=== PATIENT | male | born 1965 | race Caucasian/White ===

== ENCOUNTER 2018-01-13 06:03 | Observation (INO) | payer OTHER ==
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
[2018-01-13 06:55] LABS: Basophils % (A) 0 %; Eosinophils # (A) 0.1 k/uL (0-0.7); Eosinophils % (A) 1 %; HCT 48.4 % (39.0-53.0); HGB 16.2 gm/dL (13.0-17.5); Lymphocytes # (A) 2.6 k/uL (1.0-4.8); Lymphocytes % (A) 29 %; MCHC 33.5 g/dL (31.0-37.0); MCV 86.7 fL (80.0-100.0); Mean Platelet Volume 7.3; Monocytes # (A) 0.5 k/uL (0-1.0); Monocytes % (A) 5 %; Neutrophils # (A) 5.7 k/uL (1.3-7.7); Neutrophils % (A) 63 %; Platelet Count 211 k/uL (150-450); RBC 5.58 m/uL (4.30-5.90); RDW 13.3 % (11.5-15.5); WBC 9.1 k/uL (3.8-10.6)
[2018-01-13 07:04] LABS: ALT 44 U/L (21-72); AST 24 U/L (17-59); Albumin 4.2 g/dL (3.5-5.0); Alkaline Phosphatase 108 U/L (38-126); Anion Gap 13 mmol/L; Blood Urea Nitrogen 22 mg/dL (9-20); Calcium 9.5 mg/dL (8.4-10.2); Carbon Dioxide 22 mmol/L (22-30); Chloride 105 mmol/L (98-107); Glucose 128 mg/dL (74-99); Magnesium 2.2 mg/dL (1.6-2.3); Potassium 4.4 mmol/L (3.5-5.1); Sodium 140 mmol/L (137-145); Total Bilirubin 0.5 mg/dL (0.2-1.3); Total Protein 7.1 g/dL (6.3-8.2)
[2018-01-13 07:06] LABS: Partial Thromboplastin Time 24.6 sec (22.0-30.0); Prothrombin Time 10.2 sec (9.0-12.0)
[2018-01-13 07:14] LABS: Creatine Kinase 100 U/L (55-170)
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
[2018-01-13 07:27] LABS: Creatine Kinase MB 0.9 ng/mL (0.0-2.4); Troponin I <0.012 ng/mL (0.000-0.034)
[2018-01-13] MEDS ORDERED: ASPIRIN 81 MG PO STA (08:33)
[2018-01-13] MEDS ORDERED: NITROGLYCERIN SL TABS 0.4 MG TAB SUBLINGUAL STA (08:33)
[2018-01-13] MEDS ORDERED: NITROGLYCERIN SL TABS 0.4 MG TAB SUBLINGUAL PRN (09:58)
[2018-01-13] MEDS ORDERED: HEPARIN SODIUM,PORCINE 5,000 UNIT/ML 1 ML VIAL IV ONE (09:58)
[2018-01-13] MEDS ORDERED: WATER IV SCH ×2 (10:00)
[2018-01-13] MEDS ORDERED: HEPARIN SODIUM PORCINE IV SCH ×2 (10:00)
[2018-01-13] MEDS ORDERED: D5W PMX IV SCH ×2 (10:00)
[2018-01-13] MEDS ORDERED: DEXTROSE 5% IV SCH ×2 (10:00)
[2018-01-13] MEDS ORDERED: ACETAMINOPHEN TAB 500 MG TAB PO STA (10:27)
[2018-01-13] MEDS: SODIUM CHLORIDE 0.9% 1,000 ML IV SCH (10:45)
[2018-01-13 12:24] LABS: Creatine Kinase 81 U/L (55-170)
[2018-01-13] MEDS: NITROGLYCERIN OINT 1 INCH/GM PACKET TOPICAL SCH ×2 (12:26→18:50)
[2018-01-13 12:37] LABS: Creatine Kinase MB 0.6 ng/mL (0.0-2.4); Troponin I <0.012 ng/mL (0.000-0.034)
[2018-01-13 14:49] VITALS: BMI 38.4
[2018-01-13] MEDS: ACETAMINOPHEN TAB 325 MG TAB PO PRN (16:19)
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
[2018-01-13] MEDS: LISINOPRIL 2.5 MG TAB PO SCH (18:49)
[2018-01-13 18:52] LABS: Creatine Kinase 76 U/L (55-170)
[2018-01-13] MEDS ORDERED: HEPARIN SODIUM,PORCINE 5,000 UNIT/ML 1 ML VIAL IV PRN (18:55)
[2018-01-13 19:05] LABS: Creatine Kinase MB 0.6 ng/mL (0.0-2.4); Troponin I <0.012 ng/mL (0.000-0.034)
[2018-01-14 01:35] LABS: Cholesterol 170 mg/dL (<200); HDL Cholesterol 45 mg/dL (40-60); LDL Cholesterol,Calculated 74 mg/dL (0-99); Triglycerides 253 mg/dL (<150)
[2018-01-14] MEDS: NITROGLYCERIN OINT 1 INCH/GM PACKET TOPICAL SCH ×5 (02:00→23:50)
[2018-01-14] MEDS ORDERED: HEPARIN SODIUM,PORCINE/D5W PMX 25,000 UNIT in DEXTROSE/WATER 1 500ML.BAG IV SCH (05:44)
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
[2018-01-14] MEDS: ATORVASTATIN 40 MG TAB PO SCH (10:09)
[2018-01-14] MEDS: ASPIRIN 325 MG TAB PO SCH (10:09)
[2018-01-14] MEDS: LISINOPRIL 2.5 MG TAB PO SCH (10:09)
[2018-01-14] MEDS: PANTOPRAZOLE 40 MG TABLET PO SCH (10:09)
[2018-01-14] MEDS: SODIUM CHLORIDE 0.9% 1,000 ML IV SCH (10:10)
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
[2018-01-14] MEDS ORDERED: ALPRAZolam 0.25 MG TAB PO SCH (21:00)
[2018-01-14 23:49] VITALS: RESP 18
[2018-01-15] MEDS: ACETAMINOPHEN TAB 325 MG TAB PO PRN (03:57)
[2018-01-15] MEDS: NITROGLYCERIN OINT 1 INCH/GM PACKET TOPICAL SCH ×2 (05:05→11:43)
[2018-01-15] MEDS ORDERED: LISINOPRIL 5 MG TAB PO SCH (09:00)
--- NOTE | 2018-01-15 10:16 | ECHOF ---
Referral Reason:Chest pain and cardiomyopathy MEASUREMENTS -------- HEIGHT: 175.3 cm WEIGHT: 117.9 kg BP: 130/85 IVSd: 1.3 cm (0.6 - 1.1) LVIDd: 3.5 cm (3.9 - 5.3) LVPWd: 1.4 cm (0.6 - 1.1) IVSs: 1.8 cm LVIDs: 2.0 cm LVPWs: 2.2 cm LAESV Index (A-L): 18.25 ml/m Ao Diam: 4.1 cm (2.0 - 3.7) AV Cusp: 2.6 cm (1.5 - 2.6) LA Diam: 3.5 cm (2.7 - 3.8) MV EXCURSION: 11.453 mm (> 18.000) MV EF SLOPE: 46 mm/s (70 - 150) EPSS: 0.9 cm MV E Vikash: 0.66 m/s MV DecT: 208 ms MV A Vikash: 0.72 m/s MV E/A Ratio: 0.92 RAP: 5.00 mmHg RVSP: 9.94 mmHg FINDINGS -------- Sinus rhythm. This was a technically difficult study with suboptimal views. The left ventricular size is normal. There is mild concentric left ventricular hypertrophy. Overa ll left ventricular systolic function is normal with, an EF between 55 - 60 %. The right ventricle is normal in size and function. The left atrium is normal in size. The right atrium is normal in size. Lumason used The aortic valve is trileaflet, and appears structurally normal. No aortic stenosis or regurgitation. The mitral valve leaflets are mildly thickened. There is trace mitral regurgitation. Trace tricuspid regurgitation present. The right ventricular systolic pressure, as measured by Dopp ler, is 9.94mmHg. Trace/mild (physiologic) pulmonic regurgitation. The aortic root is mildy dilated. There is no pericardial effusion. CONCLUSIONS -------- 1. Sinus rhythm. 2. This was a technically difficult study with suboptimal views. 3. The left ventricular size is normal. 4. There is mild concentric left ventricular hypertrophy. 5. Overall left ventricular systolic function is normal with, an EF between 55 - 60 %. 6. The left atrium is normal in size. 7. Lumason used 8. The aortic valve is trileaflet, and appears structurally normal. No aortic stenosis or regurgitati on. 9. The mitral valve leaflets are mildly thickened. 10. There is trace mitral regurgitation. 11. Trace tricuspid regurgitation present. 12. The right ventricular systolic pressure, as measured by Doppler, is 9.94mmHg. 13. Trace/mild (physiologic) pulmonic regurgitation. 14. The aortic root is mildy dilated measuring 4.1 cm 15. There is no pericardial effusion. WARE CARRIER: Sally Landa RDCS
[2018-01-15 11:35] LABS: Hemoglobin A1C 5.7 % (4.0-6.0)
[2018-01-15] MEDS: ATORVASTATIN 40 MG TAB PO SCH (11:40)
[2018-01-15] MEDS: ASPIRIN 325 MG TAB PO SCH (11:40)
[2018-01-15] MEDS: PANTOPRAZOLE 40 MG TABLET PO SCH (11:40)
[2018-01-15 11:46] VITALS: BP 163/101; PULSE 110; TEMP 97.5
--- NOTE | 2018-01-15 13:48 | P.PN ---
Subjective Progress Note Date: 01/15/18 Mr. Preciado is a pleasant 52-year-old male past medical history significant for hypertension. We are following him for symptoms of chest discomfort. He has had no further symptoms of chest pain since admission. Telemetry tracings have been unremarkable for arrhythmia. He does have PVCs noted. He denies symptoms of chest pain, shortness of breath, dizziness, palpitations, nausea, vomiting or diaphoresis. Since admission he has been started on lisinopril 5 mg daily for optimal blood pressure control. Blood pressure this morning 154/76 heart rate 98 afebrile maintaining oxygen saturation on room air. This was prior to medication administration. Echo Cardizem and Doppler study performed reveals preserved left ventricular systolic function with ejection fraction 55-60% with no evidence of valvular heart disease. Aortic root is mildly dilated at 4.1 cm. Objective - Vital Signs Vital signs: Vital Signs Temp 97.5 F L 01/15/18 11:45 Pulse 110 H 01/15/18 11:45 Resp 18 01/15/18 11:45 BP 163/101 01/15/18 11:45 Pulse Ox 95 01/15/18 11:45 Intake & Output 01/14/18 01/15/18 01/15/18 18:59 06:59 18:59 Intake Total 300 Balance 300 Weight 117.934 kg Intake: Oral 300 Other: Voiding Method Toilet Toilet Toilet - Exam GENERAL: Well-appearing, well-nourished and in no acute distress. NECK: Supple without JVD or thyromegaly. LUNGS: Breath sounds clear to auscultation bilaterally. Respiration equal and unlabored. No wheezes, rales or rhonchi. HEART: Regular rate and rhythm without murmurs, rubs or gallops. S1 and S2 heard. EXTREMITIES: Normal range of motion, no edema. No clubbing or cyanosis. Peripheral pulses intact and strong. - Labs CBC & Chem 7: 01/13/18 06:25 01/13/18 06:25 Assessment and Plan Assessment: ASSESSMENT 1. Chest pain. An acute coronary event has been ruled out with no EKG evidence of ischemia and negative cardiac enzymes. 2. Hypertension, uncontrolled 3. Mildly dilated aortic root 4.1 cm. PLAN Stress echocardiogram performed as ordered by Dr. Uriostegui. Negative for stress induced ischemia. Further evaluation of dilated aortic root to be directed per primary team. Possibly done as an outpatient. Follow up with Dr. Uriostegui in 2 weeks. Nurse Practitioner note has been reviewed, I agree with a documented findings and plan of care. Patient was seen and examined.
--- NOTE | 2018-01-15 14:00 | ECHOS ---
STRESS ECHOCARDIOGRAM DATE OF SERVICE: 01/15/2018 INDICATIONS: Chest pain. MEDICATIONS: None. BASELINE HEART RATE: 94 BASELINE BLOOD PRESSURE: 121/52 MAXIMUM HEART RATE: 159 MAXIMUM BLOOD PRESSURE: 193/75 85% MPHR: 143 100% MPHR: 168 METS: 11.3 MAXIMUM STAGE REACHED: 4 TOTAL EXERCISE TIME: 9:45 CLINICAL INFORMATION: Baseline rhythm is a sinus mechanism, rate of 94, borderline left axis deviation, poor progression, occasional PVCs. Baseline blood pressure 121/52 mmHg. Patient exercised per protocol for 9 minutes 45 seconds, reaching a peak rate of 159 beats per minute, which is equal to 94% of maximum predicted heart rate. Peak blood pressure 193/75 mmHg. Chest was terminated due to fatigue. There was no chest pain. Electrocardiograph monitoring revealed occasional single PVCs. There was no evidence of diagnostic ischemic ST deviation. FINDINGS: Baseline echocardiogram revealed normal wall thickening, motion, at peak exercise there was normal wall motion augmentation with no hypokinesis or dyskinesis. CONCLUSION: 1. Average exercise tolerance with normal response to exercise with occasional premature ventricular contractions. 2. Normal stress echocardiogram with no evidence of stress induced ischemia. MMODL / IJN: [id number] /
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
== END 2018-01-15 14:50 | disposition home or self-care (01) ==
LOC: EC 06:03 → 3OBS 10:01 → 3SUR 18:56 → 3OBS 01-15 07:15
PROVIDERS: ADMIT Internal Medicine; ATTEND Internal Medicine
DX: R07.89 Other chest pain (principal); I11.9 Hypertensive heart disease without heart failure; R73.9 Hyperglycemia, unspecified; I77.810 Thoracic aortic ectasia; I49.3 Ventricular premature depolarization; E66.9 Obesity, unspecified; Z68.38 Body mass index [BMI] 38.0-38.9, adult; F32.9 Major depressive disorder, single episode, unspecified; F41.9 Anxiety disorder, unspecified; F43.9 Reaction to severe stress, unspecified; Z91.14 Patient's other noncompliance with medication regimen; Z88.0 Allergy status to penicillin
CPT/HCPCS: 99285 ×2; 96365 ×2; 96366 ×6; 96376 ×2; 36415; 94760; 93005; 93306; 93351; 83880; 80061; 80053; 82550; 82553; 83735; 84484; 85025; 85610; 85730 ×2; 83036; 71046; G0378 ×3; J1644 ×2; Q9950

== ENCOUNTER → 2020-08-31 | Outpatient (CLI) | payer OTHER ==
--- NOTE | 2020-08-31 10:33 | XR ---
Lumbar spine HISTORY: Back pain 3views of the lumbar spine There is a slight spinal curvature. There is a rotatory component. Multilevel spondylosis is present. There is loss of disc height at intervertebral levels. Sclerosis is present at the lower lumbar spin e posterior elements. Possible vacuum phenomenon at intervertebral discs place L4-5 and L5-S1. IMPRESSION: Degenerative disc disease and facet arthropathy. Mild spinal curvature.
== END | disposition home or self-care (01) ==
LOC: RADXRMAIN 09:46
PROVIDERS: ATTEND Emergency Medicine
DX: M51.36 Other intervertebral disc degeneration, lumbar region (principal); M47.816 Spondylosis without myelopathy or radiculopathy, lumbar region; M43.8X6 Other specified deforming dorsopathies, lumbar region
CPT/HCPCS: 72100

== ENCOUNTER → 2020-09-07 | Outpatient (CLI) | payer OTHER ==
--- NOTE | 2020-09-07 09:47 | XR ---
EXAMINATION TYPE: XR Hip Complete RT DATE OF EXAM: 09/07/2020 COMPARISON: NONE HISTORY: Pain TECHNIQUE: 2 views submitted FINDINGS: There is no evidence of erosive change or acute fracture. Hypertrophic change of the acetabulum. Tiny spur extending off the lateral margin of the femoral head and be associated with femoral acetabular impingement. IMPRESSION: 1. No evidence of acute fracture or dislocation.
== END | disposition home or self-care (01) ==
LOC: RADXRMAIN 09:27
PROVIDERS: ATTEND Emergency Medicine
DX: S39.012D Strain of muscle, fascia and tendon of lower back, subsequent encounter (principal); M25.551 Pain in right hip
CPT/HCPCS: 73502

== ENCOUNTER → 2020-09-30 | Outpatient (CLI) | payer OTHER ==
--- NOTE | 2020-09-30 20:42 | MR ---
EXAMINATION TYPE: MR lumbar spine wo con DATE OF EXAM: 09/30/2020 COMPARISON: None HISTORY: Right back pain CONTRAST: 0 mL intravenous . TECHNIQUE: Multiplanar, multisequence images of the lumbar spine were acquired. FINDINGS: L5-S1: There is a small central protrusion with mild anterior thecal sac compression. No disc herniat ion is evident. No spinal canal stenosis or neural foraminal stenosis is present. Mild facet hypertr ophy is present. Posterior disc space narrowing may be present.. L4-L5: Mild disc bulge has anterior thecal sac flattening. Facet hypertrophy and some ligamentum flavum laxity is posterior lateral thecal sac compression. No s tenosis is present. Neural foramen are patent L3-L4: Mild disc degenerative changes are present with narrowing of the disc height. No spinal canal stenosis or neural foraminal stenosis is present. L2-L3: There is a very large right paracentral disc herniation with significant anterior thecal sac c ompression. Exiting right L3 nerve root impingement should be correlated mild left foramen is patent. Right foraminal stenosis is not evident L1-L2: Minimal subligamentous central disc herniation is present. This has minimal anterior thecal sa c compression. No spinal canal stenosis or neural foraminal stenosis is present. No spinal canal margarita nosis. No foraminal stenosis. T12-L1: No significant disc bulge or disc herniation. No spinal canal stenosis. No foraminal stenos is. IMPRESSION: 1. Large disc herniation from L2-3 into the right paracentral region extending posterior to the L3 ve rtebral level causing stenosis. Correlate with right L3 radicular symptoms. 2. Mild degenerative disc changes through the lumbar spine. Some mild loss of disc height may be pres ent L2-3, L1-2 and L5-S1
== END | disposition home or self-care (01) ==
LOC: RADMRIMAIN 16:13
PROVIDERS: ATTEND Emergency Medicine
DX: M48.061 Spinal stenosis, lumbar region without neurogenic claudication (principal); M51.26 Other intervertebral disc displacement, lumbar region; M51.36 Other intervertebral disc degeneration, lumbar region
CPT/HCPCS: 72148

== ENCOUNTER → 2020-10-05 | Outpatient (CLI) | payer OTHER ==
[2020-10-05 12:57] LABS: Basophils % (A) 0 %; Eosinophils % (A) 0 %; HCT 48.1 % (39.0-53.0); HGB 16.1 gm/dL (13.0-17.5); Lymphocytes # (A) 1.8 k/uL (1.0-4.8); Lymphocytes % (A) 22 %; MCH 30.5 pg (25.0-35.0); MCHC 33.4 g/dL (31.0-37.0); MCV 91.4 fL (80.0-100.0); Mean Platelet Volume 7.8; Monocytes # (A) 0.2 k/uL (0-1.0); Monocytes % (A) 3 %; Neutrophils # (A) 5.8 k/uL (1.3-7.7); Neutrophils % (A) 73 %; Platelet Count 173 k/uL (150-450); RBC 5.26 m/uL (4.30-5.90); RDW 13.1 % (11.5-15.5); WBC 7.9 k/uL (3.8-10.6)
[2020-10-05 13:04] LABS: African American GFR (CKD) >90 (>60 ml/min/1.73 sqM); Anion Gap 11 mmol/L; Blood Urea Nitrogen 21 mg/dL (9-20); Calcium 9.5 mg/dL (8.4-10.2); Carbon Dioxide 25 mmol/L (22-30); Chloride 100 mmol/L (98-107); Glucose 158 mg/dL (74-99); Non-African American GFR(CKD) >90 (>60 ml/min/1.73 sqM); Potassium 5.6 mmol/L (3.5-5.1); Sodium 136 mmol/L (137-145)
[2020-10-05 13:13] LABS: Partial Thromboplastin Time 22.8 sec (22.0-30.0); Prothrombin Time 10.5 sec (9.0-12.0)
[2020-10-05 13:20] LABS: Appearance,Urine Clear (Clear); Bilirubin,Urine Negative (Negative); Blood,Urine Negative (Negative); Color,Urine Light Yellow; Glucose,Urine (UA) Negative (Negative); Ketones,Urine Negative (Negative); Leukocyte Esterase,Urine Negative (Negative); Nitrite,Urine Negative (Negative); PH, Urine 6.5 (5.0-8.0); Protein,Urine Negative (Negative); Specific Gravity,Urine 1.015 (1.001-1.035); Urobilinogen,Urine <2.0 mg/dL (<2.0)
--- NOTE | 2020-10-06 08:06 | XR ---
EXAMINATION TYPE: XR chest 2V DATE OF EXAM: 10/06/2020 COMPARISON: Chest x-ray 01/13/2018 HISTORY: Presurgical, Z01.818 TECHNIQUE: Frontal and lateral views of the chest are obtained. FINDINGS: There is no focal air space opacity, pleural effusion, or pneumothorax seen. The cardiac silhouette size is within normal limits. The osseous structures are intact. IMPRESSION: No acute cardiopulmonary process.
== END ==
LOC: LABPAT 12:02
PROVIDERS: ATTEND Orthopaedic Surgery Orthopaedic Surgery of the Spine
DX: Z01.818 Encounter for other preprocedural examination (principal)
CPT/HCPCS: 36415; 71046; 80048; 81003; 85025; 85610; 85730; 93005

== ENCOUNTER 2020-10-14 13:31 | Day surgery (SDC) | payer OTHER ==
[2020-10-09 13:04] VITALS: BMI 36.1
[~2020-10-14 13:31] MED LIST: DEXAMETHASONE SOD PHOSPHATE 4 MG/ML 1 ML VIAL IV ONE; HYDROmorphone 0.5 MG/0.5 ML SYRINGE IVP PRN; LIDOCAINE 1% (10MG/ML) FOR IV START INTRADERMA PRN; MIDAZOLAM 2 MG/2 ML VIAL IV PRN; ceFAZolin 1,000 MG in SODIUM CHLORIDE 0.9% IRRIGATIO 1,000 ML IRRIGATION PRN
[2020-10-14 14:07] LABS: Glucose,Whole Blood 106 mg/dL (75-99)
[2020-10-14] MEDS ORDERED: ONDANSETRON 4 MG/2 ML VIAL IVP ONE (14:07)
[2020-10-14] MEDS: LACTATED RINGERS 1,000 ML IV SCH ×2 (14:07→20:42)
[2020-10-14] MEDS ORDERED: ONDANSETRON 4 MG/2 ML VIAL ONE (14:09)
[2020-10-14] MEDS ORDERED: ROCURONIUM 10 MG/ML (10 ML VIAL) IV ONE (14:35)
[2020-10-14] MEDS ORDERED: fentaNYL (PF) 50 MCG/ML 2 ML AMP ONE (14:35)
[2020-10-14] MEDS ORDERED: MIDAZOLAM 2 MG/2 ML VIAL ONE (14:35)
[2020-10-14] MEDS ORDERED: PROPOFOL 10 MG/ML 20 ML VIAL IV ONE (14:35)
[2020-10-14] MEDS ORDERED: NEOSTIGMINE 1 MG/ML 10 ML VIAL ONE (14:35)
[2020-10-14] MEDS ORDERED: LIDOCAINE 1% INJ 10MG/ML (20 ML MDV) ONE (14:35)
[2020-10-14] MEDS ORDERED: GLYCOPYRROLATE 0.2 MG/ML 2 ML VIAL ONE (14:35)
[2020-10-14] MEDS ORDERED: LIDOCAINE 2%-EPI 1:100,000 20 ML VIAL SQ ONE ×2 (14:45→15:15)
[2020-10-14] MEDS ORDERED: BUPIVACAINE (PF) 0.25% 30 ML VIAL SQ ONE ×2 (14:45→15:15)
[2020-10-14] MEDS ORDERED: methylPREDNISolone ACETATE 80 MG/ML 1 ML VIAL INJ ONE (14:45)
[2020-10-14] MEDS ORDERED: THROMBIN (BOVINE) 5,000 UNIT VIAL TOPICAL ONE (14:46)
[2020-10-14] MEDS ORDERED: GELATIN SPONGE,ABSORB (SMALL) 1 EACH SPONGE TOPICAL ONE (14:46)
--- NOTE | 2020-10-14 15:39 | FL ---
EXAMINATION TYPE: FL guidance operating room DATE OF EXAM: 10/14/2020 HISTORY: Fluoroscopy time 1 seconds of fluoroscopy provided. IMPRESSION: 1. Fluoroscopy time.
[2020-10-14] MEDS ORDERED: LACTATED RINGERS 1,000 ML IV ONE (15:45)
[2020-10-14] MEDS ORDERED: GELATIN SPONGE,ABSORB (LARGE) 1 EACH SPONGE TOPICAL ONE (15:49)
[2020-10-14] MEDS ORDERED: HYDROmorphone 1 MG/ML 1 ML SYRINGE IVP PRN (16:18)
[2020-10-14] MEDS ORDERED: IBUPROFEN 600 MG TAB PO PRN (16:18)
[2020-10-14] MEDS ORDERED: KETOROLAC 15 MG/ML 1 ML VIAL IVP PRN (16:18)
[2020-10-14] MEDS ORDERED: BENZOCAINE/MENTHOL LOZENG 1 EACH LOZENGE MUCOUS MEM PRN (16:18)
[2020-10-14] MEDS ORDERED: HYDROcodone/APAP 5-325MG 1 EACH TAB PO PRN ×2 (16:18)
[2020-10-14] MEDS ORDERED: HYDROmorphone 0.5 MG/0.5 ML SYRINGE IVP PRN (16:18)
--- NOTE | 2020-10-14 16:26 | P.OP ---
Date of Procedure: 10/14/20 Preoperative Diagnosis: Massive disc herniation L2-3, right lower extremity radiculopathy, right lower extremity weakness, low back pain Postoperative Diagnosis: Same Anesthesia: GETA Pathology: none sent Condition: stable Disposition: PACU Description of Procedure: BRIEF OPERATIVE NOTE Preoperative Diagnosis:Massive disc herniation L2-3, right lower extremity radiculopathy, right lower extremity weakness, low back pain Postoperative Diagnosis:Massive disc herniation L2-3, right lower extremity radiculopathy, right lower extremity weakness, low back pain Procedure: Laminectomy and decompression L2-3 Discectomy for decompression L2-3 Surgeon: Dr. Anderson Accounts Receivable Assistant: Branden Leary is present throughout the entire the case p ersistence during positioning, dissection, exposure, visualization, and all crucial elements of the case as well as closure. Anesthesia: General anesthesia per Dr. Roberts Estimated blood loss: Approximately 300 mL Complications: None apparent Components implanted: None Disposition: To recovery room in good stable condition. OPERATIVE INDICATIONS The patient has been having issues in their lower back and lower extremities. He is having severe debilitating pain in his right lower extremity in his right thigh. His found have a massive disc herniation at L2-3 with extruded fragment which had migrated caudally. This correlated very well with his low back and lower extremity symptoms. He is having some weakness in his right lower extremity. The patient has been through conservative treatment. We discussed various treatment options including surgery, and the patient wishes to proceed with surgery We discussed the risk, patient's alternatives and benefits of surgery including but not limited to, risk of bleeding risk of infection, risk of need for further surgery, risk of decreased, loss of motion, loss of function, nerve damage, paralysis, heart attack, blindness and . OPERATIVE SUMMARY After discussing all the risks, patient alternatives and benefits at length, the patient elected to proceed with surgical intervention, signed informed consent, and presented for their procedure. The patient was seen and examined in the preoperative holding area and the surgical site was marked. The patient was given antibiotics and brought to the operating room. The patient was sedated and intubated by anesthesia in standard fashion. The patient was positioned on to the operating room table in a prone position on the appropriate frame which was well-padded and well molded. We were careful to pad any bony prominences and pressure points. We were careful to maintain the patient's cervical spine and good neutral alignment and position throughout. The patient was prepped and draped in a normal standard fashion. An appropriate timeout and keystone protocol performed. We were able to proceed with the surgery. Fluoroscopy was utilized to establish the appropriate level. The local wound area was infiltrated with local anesthetic. An incision was made at the midline longitudinally over the appropriate levels at L2-3 approximately 2 cm in length. Dissection was taken down subcutaneously to the level of the fascia which was split midline. Dissection was taken over the lamina. Intraoperative fluoroscopy was taken which showed a marker at the appropriate level of L2-3. With the appropriate level positively confirmed, we were able to proceed with laminectomy. The wound was copiously irrigated and suctioned dry as had been done periodically throughout the case. I performed a laminectomy with a combination of curettes and a high-speed bur and Kerrison rongeurs. A small medial facetectomy was performed again further access. A partial foraminotomy was also performed. Portions of the ligamentum flavum were taken down to expose the dura and traversing nerve root. I was able to mobilize the traversing nerve root and gain access to the disc space. Note was made of obvious compression from the disc. Protecting the soft tissue structures, a small annulotomy was established. I was able to find a massive fragment of extruded disc which had migrated caudally as demonstrated on the MRI. I was able to perform discectomy and remove any extruded disc fragments and any loose fragments from within the disc itself. This removal of the extruded fragment gave excellent decompression. I was able to explore into the disc itself There is some disc desiccation noted. I tried to preserve the disc annulus that appeared stable. There were no further extruded fragments noted. There is no evidence of dural tear or leak. Good hemostasis maintained. The wound was copiously irrigated and suctioned dry. Good decompression and discectomy was noted. We were able to proceed with closure. The fascia was closed for a watertight closure. The subcuticular tissue was closed with absorbable suture. The wound was cleaned and dried and dressed with the appropriate dressing. The drapes were broken down. The patient was gently rolled back onto their hospital bed being careful to maintain their cervical spine and good neutral alignment and position. They were woken up by anesthesia, extubated, and brought to the recovery room in good stable condition. The patient will be admitted to the hospital for observation and for appropriate postoperative care, medical management and monitoring. We will continue to follow them closely about the postoperative course.
[2020-10-14] MEDS ORDERED: SODIUM CHLORIDE 0.9% 1,000 ML IV SCH (16:30)
[2020-10-14] MEDS: HYDROmorphone 1 MG/ML 1 ML SYRINGE IVP ONE ×2 (16:43→16:59)
--- NOTE | 2020-10-14 16:57 | XR ---
Limited lumbar spine HISTORY: Needle placement Single lateral lumbar spine is intraoperative and performed for orthopedic localization.
--- NOTE | 2020-10-14 18:23 | P.CONS ---
History of Present Illness - Reason for Consult Consult date: 10/14/20 Medical management Requesting physician: Marli Anderson - Chief Complaint Laminectomy discectomy L2-L3 postop - History of Present Illness This is a 55-year-old pleasant gentleman patient of Dr. Draper BPH without lower urinary tract symptomatology She he has under heat underlying history of hypertension, and penicillin ALLERGY, admitted to the service of Dr. Anderson for L2-L3, laminectomy performed on 10/14/2020. Patient currently is on metoprolol, we are 4 200 mg daily, lisinopril 40 mg, prednisone taper, lidocaine patches,on opiates prior to admission. This had meds prior to admission. Patient has been symptomatic, he sustained an injury early 08/22/2020 while lifting some baskets and trace, upon taking this or not, patient's pain started on the lower back, he has worsening of symptoms, for which prednisone on the provided some short-term relief, patient has difficulty in the anterior part of the right leg, aggravated by standing, right leg is weaker than usual. He was found to have lumbar L2-L3 myelopathy, for which they have recommended the laminectomy. Patient denies any history of diabetes mellitus, no CVA no DVT PE, no CAD, no CHF. Patient denies any cancer, or chronic immunosuppressive state. Review of Systems Constitutional: Denies as per HPI, Denies anorexia, Denies chills, Denies chronic headaches, Denies chronic pain, Denies daytime sleepiness, Denies fatigue, Denies fever, Denies lethargy, Denies malaise, Denies night sweats, Denies poor appetite, Denies sweats, Denies weakness, Denies weight gain, Denies weight loss Ears, nose, mouth and throat: Reports as per HPI, Denies ant. neck pain, Denies bleeding gums, Denies dental pain, Denies dysphagia, Denies epistaxis, Denies headache, Denies hoarseness, Denies mouth pain, Denies nasal congestion, Denies nasal discharge, Denies neck fullness/pressure, Denies neck lump, Denies nose pain, Denies odynophagia, Denies post-nasal drip, Denies sinus pain, Denies sinus pressure, Denies swelling in mouth, Denies swelling in throat, Denies sore throat, Denies vertigo, Denies voice changes Cardiovascular: Reports as per HPI Respiratory: Reports as per HPI Gastrointestinal: Reports as per HPI, Denies abdominal pain, Denies belching, Denies bloating, Denies BRBPR, Denies change in bowel habits, Denies coffee ground emesis, Denies constipation, Denies diarrhea, Denies dyspepsia, Denies early satiety, Denies excessive gas, Denies heartburn, Denies hematemesis, Denies hematochezia, Denies indigestion, Denies jaundice, Denies lactose intolerance, Denies loss of appetite, Denies melena, Denies nausea, Denies vomiting Genitourinary: Reports as per HPI Musculoskeletal: Reports as per HPI, Denies arm numbness/tingling, Denies atrophy, Denies fractures, Denies frequent falls, Denies gait dysfunction, Denies hot joints, Denies leg numbness/tingling, Denies limitation of motion, Denies loss of height, Denies low back pain, Denies morning stiffness, Denies muscle cramps, Denies muscle weakness, Denies myalgias, Denies neck pain, Denies neck stiffness, Denies prior amputations, Denies redness of joints, Denies shooting arm pain, Denies shooting leg pain Integumentary: Reports as per HPI Neurological: Reports as per HPI, Denies aphasia, Denies ataxia, Denies balance difficulties, Denies burning pain, Denies change in mentation, Denies change in smell/taste, Denies change in speech, Denies confusion, Denies convulsions, Denies double vision, Denies gait dysfunction, Denies head injury, Denies headaches, Denies hearing difficulties, Denies lack of coordination, Denies loss of vision, Denies memory loss, Denies migraines, Denies motor disturbance, Denies numbness, Denies paralysis, Denies paresthesias, Denies seizures, Denies sensory deficit, Denies spasticity, Denies syncope, Denies tic, Denies tingling, Denies transient paralysis, Denies tremors, Denies vertigo, Denies weakness, Denies visual changes Psychiatric: Reports as per HPI Endocrine: Reports as per HPI Hematologic/Lymphatic: Reports as per HPI Allergic/Immunologic: Reports as per HPI Past Medical History Past Medical History: Hypertension, Prostate Disorder History of Any Multi-Drug Resistant Organisms: None Reported Past Surgical History: Orthopedic Surgery Additional Past Surgical History / Comment(s): knee surgery as a child Past Anesthesia/Blood Transfusion Reactions: No Reported Reaction Past Psychological History: No Psychological Hx Reported Smoking Status: Never smoker Past Alcohol Use History: Occasional Past Drug Use History: None Reported - Past Family History Mother Family Medical History: No Reported History Medications and Allergies Home Medications Medication Instructions Recorded Confirmed Type HYDROcodone/APAP 5-325MG [[place] 5] 1 each PO Q6HR PRN #28 tab 10/14/20 Rx amLODIPine [Norvasc] 10 mg PO DAILY 10/14/20 10/14/20 History Allergies Allergy/AdvReac Type Severity Reaction Status Date / Time Penicillins Allergy Unknown Verified 10/14/20 13:57 Childhood Physical Exam Vitals: Vital Signs Temp Pulse Pulse Resp BP Pulse Ox 10/14/20 17:27 71 16 146/84 99 10/14/20 17:12 74 16 143/81 99 10/14/20 16:57 67 16 133/75 100 10/14/20 16:42 70 16 147/80 100 10/14/20 16:27 97.6 F 84 16 149/84 99 10/14/20 13:55 97.5 F L 92 16 149/95 99 Intake and Output 10/14/20 10/14/20 10/14/20 06:59 14:59 22:59 Intake Total 900 251 Output Total 250 Balance 900 1 Intake: IV 900 251 Output: Estimated Blood Loss 250 Other: Weight 113.9 kg - Constitutional General appearance: cooperative, no acute distress - EENT Eyes: EOMI, PERRLA, dentition normal, normal appearance ENT: hearing grossly normal, normal oropharynx - Neck Neck: normal ROM - Respiratory Respiratory: bilateral: CTA, negative: diminished, dullness, rales, rhonchi - Cardiovascular Rhythm: regular Heart sounds: normal: S1, S2 Abnormal Heart Sounds: no systolic murmur, no diastolic murmur, no rub, no S3 Gallop, no S4 Gallop, no click, no other - Gastrointestinal General gastrointestinal: normal bowel sounds, soft - Integumentary Integumentary: decreased turgor, normal - Musculoskeletal Musculoskeletal: gait normal, right sided weakness - Psychiatric Psychiatric: A&O x's 3, intact judgment & insight Results Labs: Abnormal Lab Results - Last 24 Hours (Table) 10/14/20 Range/Units 14:05 POC Glucose (mg/dL) 106 H (75-99) mg/dL Laboratory Results POC Glucose (mg/dL) 106 mg/dL (75-99) H 10/14/20 14:05 POC Glu Insulation Cutter ID Ayleen Flores 10/14/20 14:05 Assessment and Plan Plan: 1. Postop day #0 laminectomy decompression L2-L3, with discectomy for decompression L2-L3, performed 10/14/2020 for Right lumbar myelopathy secondary to a very large herniated L2-L3 discs, underlying mild scoliosis, distention induration also on other disc L4-L5, L5-S1 without any instability. Previous MRI imaging, 09/30/2020, showed very large disc herniation with extruded fragment L2-L3. There is caudal migration causing severe right foraminal and some central stenosis. Opiates for pain control as ibuprofen when necessary if need to add local anti-spasmodic for musculoskeletal spasms, 2. Hypertension, currently controlled with some upper trending secondary to pain, medications are resumed, amlodipine 10 mg, along with pain control, patient was given dexamethasone 4 mg intraoperatively. Patient is not on any beta mary as confirmed by current regimen 3. GI prophylaxis bowel program with current concurrent use of opiates, Pepcid and senna 4. BPH without lower tract symptomatology 5. DVT prophylaxis with early ambulation Thank you Dr. Anderson in allowing us as to participate in the care. Patient. We are going to follow him with you during this current hospital stay, recommendations to be made based on clinical progress
[2020-10-14] MEDS ORDERED: MELATONIN 3 MG TABLET PO SCH (21:00)
[2020-10-15 04:46] VITALS: RESP 18
--- NOTE | 2020-10-15 08:36 | P.DS ---
Providers Date of admission: 10/14/20 Attending physician: Marli Anderson Primary care physician: Ed Draper MD Hospital Course: The patient presented on the day of admission as per their operative note. He had a massive disc herniation at L2-3 and underwent laminectomy decompression with discectomy at L2-3 as per his operative note. He is having significant troubles at his right lower extremity and he feels that those have improved but is still having some numbness tingling on his right foot. He has been able to void and he is voiding regularly however he feels like he is still having some trouble emptying fully. He has only been trying to urinate while in bed thus far and he will try further standing and sitting up. His pain is well-controlled. Physical Exam The incision site is clean dry and intact. There is no erythema no drainage. There is no purulence no evidence of infection. There is no drainage on his lumbar dressings Abdomen soft and nontender. Chest has good excursion with deep inspiration and expiration. The patient has active and passive range of motion intact at the upper and lower extremities. There is no acute change in neurologic status. He has sustained dorsal flexion plantar flexion and EHL. He is able to flex his hip though he still has some weakness in his right thigh. Hospital Course Postoperative day #1 status post laminectomy decompression with discectomy at L2-3 for his massive disc herniation and lower extremity radiculopathy and weakness. The patient has been making good progress postoperatively. They have completed the prophylactic antibiotics without any signs or symptoms of infection. The patient has been able to advance their diet, and is tolerating diet adequately. The pain was initially controlled with IV medications and is now controlled appropriately with oral medications. The patient has been able to increase their mobilization. He has been able to void on his own but he feels that he is not completely emptying. We'll see how he does this course of the morning particular with him standing and sitting up to see if he feels better urinating. If This is going well it is okay for him to be discharged home today. The patient has progressed appropriately. I think they are in good stable condition for discharge today if he is able to void well. They will be sent home with appropriate prescriptions. I answered their questions to the best of my ability in a language that they can understand and they are agreeable with the plan. They will follow up as directed in approximately 2 weeks or sooner if they have any problems. Patient Condition at Discharge: Good Plan - Discharge Summary Discharge Rx Participant: Yes New Discharge Prescriptions: New HYDROcodone/APAP 5-325MG [[place] 5] 1 each PO Q6HR PRN #28 tab PRN Reason: Pain No Action amLODIPine [Norvasc] 10 mg PO DAILY Discharge Medication List HYDROcodone/APAP 5-325MG [[place] 5] 1 each PO Q6HR PRN #28 tab 10/14/20 [Rx] amLODIPine [Norvasc] 10 mg PO DAILY 10/14/20 [History] Follow up Appointment(s)/Referral(s): Marli Anderson DO [Doctor of Osteopathic Medicine] - 2 Weeks (YOU WILL NEED TO CALL TO SCHEDULE YOUR FOLLOW UP APPOINTMENT UNLESS YOU ALREADY HAVE ONE MADE) Patient Instructions/Handouts: *Surgery [facility] - (Anesthesia) Discharge Instructions Outpatient Surgery, Laminectomy (DC) Activity/Diet/Wound Care/Special Instructions: Keep site clean. May shower with waterproof Tegaderm intact. Do not soak in a tub. After 72 hours postoperatively, patient May remove dressing and then may shower with area uncovered. Leave Steri-Strips intact and allow them to fray off on their own. May ambulate as tolerated. Avoid heavy or rigorous activity. No repetitive bending twisting or lifting. No overhead work. Discharge Disposition: HOME SELF-CARE
[2020-10-15] MEDS ORDERED: SENNOSIDES-DOCUSATE SODIUM 1 EACH TAB PO SCH (09:00)
[2020-10-15] MEDS ORDERED: amLODIPine 10 MG TAB PO SCH (09:00)
[2020-10-15] MEDS ORDERED: TAMSULOSIN 0.4 MG CAP.ER.24H PO STA (10:50)
[2020-10-15 13:59] VITALS: BP 134/82; PULSE 83; TEMP 97.9
== END 2020-10-15 15:10 | disposition home or self-care (01) ==
LOC: OR 13:31 → 5NMEDONC 16:15 → OR 10-15 15:10
PROVIDERS: ATTEND Orthopaedic Surgery Orthopaedic Surgery of the Spine
DX: S33.121A Dislocation of L2/L3 lumbar vertebra, initial encounter (principal); X50.9XXA Other and unspecified overexertion or strenuous movements or postures, initial encounter; Y99.0 Civilian activity done for income or pay; M48.061 Spinal stenosis, lumbar region without neurogenic claudication; G99.2 Myelopathy in diseases classified elsewhere; M54.16 Radiculopathy, lumbar region; M41.86 Other forms of scoliosis, lumbar region; I10 Essential (primary) hypertension; E78.5 Hyperlipidemia, unspecified; E87.5 Hyperkalemia; M19.90 Unspecified osteoarthritis, unspecified site; G47.00 Insomnia, unspecified; N40.0 Benign prostatic hyperplasia without lower urinary tract symptoms; Z97.3 Presence of spectacles and contact lenses; Z79.899 Other long term (current) drug therapy; Z88.0 Allergy status to penicillin; Z98.890 Other specified postprocedural states; Z82.49 Family history of ischemic heart disease and other diseases of the circulatory system
CPT/HCPCS: 97162; 72020; 63030; J1040; J0690 ×3; J2405; J1170

== ENCOUNTER 2020-12-05 09:04 | Emergency (ER) | payer OTHER ==
--- NOTE | 2020-12-05 09:24 | ED ---
General Adult HPI - General Chief complaint: Shortness of Breath Stated complaint: Covid+ Source: patient, RN notes reviewed, old records reviewed Mode of arrival: ambulatory Limitations: no limitations - History of Present Illness Initial comments: This a 55-year-old male who presents emergency department stating that he was tested positive for COVID earlier this week. Patient states symptoms started on Monday. Patient states he did get the vaccination 3 weeks ago but he has not got the second shot yet. Patient states he has had fevers and chills every day. Patient states he has body aches. Patient states he came in today because he doesn't believe the symptoms are getting any better. Patient denies any cough patient denies any shortness of breath per patient denies any chest pain or palpitation. Patient's abdominal pain patient denies nausea vomiting diarrhea. Patient is 55 years old and hypertensive - Related Data Home Medications Medication Instructions Recorded Confirmed amLODIPine [Norvasc] 10 mg PO DAILY 10/14/20 10/14/20 Previous Rx's Medication Instructions Recorded HYDROcodone/APAP 5-325MG [[place] 5] 1 each PO Q6HR PRN #28 tab 10/14/20 Tamsulosin HCl [Flomax] 0.4 mg PO DAILY #30 capsule 10/15/20 Allergies Allergy/AdvReac Type Severity Reaction Status Date / Time Penicillins Allergy Unknown Verified 12/05/20 09:09 Childhood Review of Systems ROS Statement: Those systems with pertinent positive or pertinent negative responses have been documented in the HPI. ROS Other: All systems not noted in ROS Statement are negative. Past Medical History Past Medical History: Hypertension, Prostate Disorder History of Any Multi-Drug Resistant Organisms: None Reported Past Surgical History: No Surgical Hx Reported Past Psychological History: No Psychological Hx Reported Smoking Status: Never smoker Past Alcohol Use History: Occasional Past Drug Use History: None Reported General Exam - General Exam Comments Initial Comments: GENERAL: Patient is well-developed and well-nourished. Patient is nontoxic and well- hydrated and is in mild distress. ENT: Neck is soft and supple. No significant lymphadenopathy is noted. Oropharynx is clear. Moist mucous membranes. Neck has full range of motion without eliciting any pain. EYES: The sclera were anicteric and conjunctiva were pink and moist. Extraocular movements were intact and pupils were equal round and reactive to light. Eyelids were unremarkable. PULMONARY: Unlabored respirations. Good breath sounds bilaterally. No audible rales rhon chi or wheezing was noted. CARDIOVASCULAR: There is a regular rate and rhythm without any murmurs gallops or rubs. ABDOMEN: Soft and nontender with normal bowel sounds. SKIN: Skin is clear with no lesions or rashes and otherwise unremarkable. NEUROLOGIC: Patient is alert and oriented x3. Cranial nerves II through XII are grossly intact. Motor and sensory are also intact. Normal speech, volume and content. Symmetrical smile. MUSCULOSKELETAL: Normal extremities with adequate strength and full range of motion. LYMPHATICS: No significant lymphadenopathy is noted PSYCHIATRIC: Normal psychiatric evaluation. Limitations: no limitations Course Vital Signs 12/05/20 09:06 Temperature 98.4 F Pulse Rate 105 H Respiratory 20 Rate Blood Pressure 142/79 O2 Sat by Pulse 97 Oximetry Medical Decision Making - Medical Decision Making Chest x-ray shows COVID pneumonia with slight. Patient is acting well patient received monoclonal antibodies and was discharged home. Patient was instructed to return if he had any difficulty breathing. - Lab Data Lab Results 12/05/20 Range/Units 09:35 Coronavirus (PCR) Detected A (Not Detectd) Disposition Clinical Impression: Pneumonia due to COVID-19 virus Disposition: HOME SELF-CARE Instructions (If sedation given, give patient instructions): Coronavirus Disease 2019 (COVID-19) Is patient prescribed a controlled substance at d/c from ED?: No Referrals: Ed Draper MD [Primary Care Provider] - 1-2 days Time of Disposition: 10:34
--- NOTE | 2020-12-05 10:03 | XR ---
EXAMINATION TYPE: XR chest 2V DATE OF EXAM: 12/05/2020 COMPARISON: 10/05/2020 HISTORY: Shortness of breath TECHNIQUE: Frontal and lateral views of the chest are obtained. FINDINGS: There is a small partially consolidative opacity in the right lower lung zone which was not evident on the prior study most likely represents an acute pneumonic process. Left lung is clear. There is no pleural effusion or pneumothorax. The heart and pulmonary vasculature are normal. The osseous structures are intact. IMPRESSION: Small ill-defined partially consolidative opacity in the right lower lung zone suspiciou s for an acute pneumonic process. This was not present on the prior study dated 10/05/2020
[2020-12-05] MEDS ORDERED: BAMLANIVIMAB (EUA) 700 MG, ETESEVIMAB (EUA) 1,400 MG in SODIUM CHLORIDE 0.9% 50 ML IVPB ONE (10:45)
[2020-12-05 12:26] VITALS: BP 126/78; PULSE 90; RESP 18; TEMP 98
== END 2020-12-05 12:26 | disposition home or self-care (01) ==
LOC: EC 09:04
DX: J12.82 Pneumonia due to coronavirus disease 2019 (principal); U07.1 COVID-19; Z88.0 Allergy status to penicillin; I10 Essential (primary) hypertension; Z79.899 Other long term (current) drug therapy
CPT/HCPCS: 87635; 71046; 99285; 96365; Q0245

== ENCOUNTER 2020-12-07 08:44 | Emergency (ER) | payer OTHER ==
--- NOTE | 2020-12-07 09:08 | ED ---
URI HPI - General Chief Complaint: Upper Respiratory Infection Stated Complaint: Revisit- Covid+, ROMULO Time Seen by Provider: 12/07/20 08:53 Source: patient, RN notes reviewed Mode of arrival: ambulatory Limitations: no limitations - History of Present Illness Initial Comments: 55-year-old male presents emergency Department chief complaint of covid. Pat dennis states she was seen here on Monday was given monoclonal antibody. Patient states that he woke up morning had a pulse ox 91. He states he was up and down. He became concerned and presented emergency from. He states he did feel well yesterday states he had a rough night sleeping but states he feels better now. Denies any chest pain no continuation of fever. - Related Data Home Medications Medication Instructions Recorded Confirmed amLODIPine [Norvasc] 10 mg PO DAILY 10/14/20 10/14/20 Previous Rx's Medication Instructions Recorded HYDROcodone/APAP 5-325MG [[place] 5] 1 each PO Q6HR PRN #28 tab 10/14/20 Tamsulosin HCl [Flomax] 0.4 mg PO DAILY #30 capsule 10/15/20 Allergies Allergy/AdvReac Type Severity Reaction Status Date / Time Penicillins Allergy Unknown Verified 12/07/20 08:45 Childhood Review of Systems ROS Statement: Those systems with pertinent positive or pertinent negative responses have been documented in the HPI. ROS Other: All systems not noted in ROS Statement are negative. Past Medical History Past Medical History: Hypertension, Prostate Disorder History of Any Multi-Drug Resistant Organisms: None Reported Past Surgical History: Back Surgery Past Psychological History: No Psychological Hx Reported Smoking Status: Never smoker Past Alcohol Use History: Occasional Past Drug Use History: None Reported General Exam Limitations: no limitations General appearance: alert, in no apparent distress Head exam: Present: atraumatic, normocephalic, normal inspection Eye exam: Present: normal appearance, PERRL, EOMI. Absent: scleral icterus, conjunctival injection, periorbital swelling ENT exam: Present: normal exam, normal oropharynx, mucous membranes moist Neck exam: Present: normal inspection, full ROM. Absent: tenderness, meningismus, lymphadenopathy Respiratory exam: Present: normal lung sounds bilaterally. Absent: respiratory distress, wheezes, rales, rhonchi, stridor Cardiovascular Exam: Present: regular rate, normal rhythm, normal heart sounds. Absent: systolic murmur, diastolic murmur, rubs, gallop, clicks Course Vital Signs 12/07/20 08:46 Temperature 99.3 F Pulse Rate 102 H Respiratory 18 Rate Blood Pressure 150/103 O2 Sat by Pulse 98 Oximetry Medical Decision Making - Medical Decision Making X-ray reviewed possible slight worsening though vitally stable no major changes. Patient will be discharged in stable condition. Disposition Clinical Impression: COVID-19 Disposition: HOME SELF-CARE Condition: Stable Instructions (If sedation given, give patient instructions): Coronavirus Disease 2019 (COVID-19) Additional Instructions: Please return to the Emergency Department if symptoms worsen or any other concerns. Is patient prescribed a controlled substance at d/c from ED?: No Referrals: Ed Draper MD [Primary Care Provider] - 1-2 days
--- NOTE | 2020-12-07 09:20 | XR ---
EXAMINATION TYPE: XR chest 2V DATE OF EXAM: 12/07/2020 COMPARISON: 12/05/2020 HISTORY: 55-year-old male with cough TECHNIQUE: PA and lateral views FINDINGS: Heart normal size. Aorta and pulmonary vasculature within normal limits. Airspace opacity in the righ t base slightly increased. Mild interstitial opacity left base appears new. No pleural effusion. IMPRESSION: Slight worsening in right basilar airspace disease and developing subtle interstitial infiltrate now at the left base.
[2020-12-07 10:00] VITALS: BP 154/78; PULSE 89; RESP 16; TEMP 98.5
== END 2020-12-07 09:59 | disposition home or self-care (01) ==
LOC: EC 08:44
DX: U07.1 COVID-19 (principal); I10 Essential (primary) hypertension; Z79.899 Other long term (current) drug therapy; Z88.0 Allergy status to penicillin
CPT/HCPCS: 71046; 99283

== ENCOUNTER → 2023-11-29 | Outpatient (CLI) | payer OTHER ==
--- NOTE | 2023-11-29 10:06 | XR ---
EXAM TYPE: LUMBAR SPINE X RAY SERIES COMPARISON: NONE HISTORY: Back pain TECHNIQUE: 3 views are submitted. FINDINGS: Alignment is anatomic. The pedicles are intact. The transverse processes are intact. There is a cu rvature of the spine. Multilevel degenerative disc disease with vacuum disc and severe changes L4-5 a nd L5-S1. Posterior spondylosis L5-S1. Grade 1 retrolisthesis L1-2, L2-3, and L3-4. Multilevel facet arthropathy. Interspinous arthropathy lower lumbar spine. Vascular calcifications. There is no spondy lolisthesis. IMPRESSION: 1. Multilevel degenerative disc disease most marked at L4-5 and L5-S1.
== END | disposition home or self-care (01) ==
LOC: RADXRMAIN 09:28
PROVIDERS: ATTEND Internal Medicine Geriatric Medicine
DX: M51.37 Other intervertebral disc degeneration, lumbosacral region (principal)
CPT/HCPCS: 72100